=== PATIENT | female | born 1985 | race Caucasian/White ===

== ENCOUNTER 2022-11-02 15:49 | Emergency (ER) | payer BC, SELFPAY ==
--- NOTE | ~2022-11-02 | XR_ITS ---
EXAM: XR finger 2nd RT min 2V DATE: 11/02/2022 16:15 HISTORY: smashed distal finger in a car door . COMPARISON: None available. FINDINGS: Normal mineralization. No fracture or dislocation. No lytic or blastic lesion. Joint space s are maintained. No erosion or periosteal change. Soft tissues within normal limits. IMPRESSION: No acute osseous finding in the right second finger. Reviewed, dictated and finalized at location K. R TECH
--- NOTE | 2022-11-02 16:02 | ED.UPPEXIN ---
HPI - Extremity Injury (Upper) General Chief Complaint: Extremity Injury, Upper Stated Complaint: Pointer Finger Rt Hand Injury Time Seen by Provider: 11/02/22 16:02 Source: patient Mode of arrival: ambulatory Limitations: no limitations History of Present Illness HPI narrative: 37-year-old female presents with complaint of pain to right index finger. Reports that she smashed her finger in her car door. Swelling noted. Range of motion intact. Patient is concerned for fracture. All systems reviewed and negative except as noted above. Related Data Home Medications Medication Instructions Recorded Confirmed No Home Medications 11/02/22 11/02/22 Allergies Allergy/AdvReac Type Severity Reaction Status Date / Time milk Allergy Severe Anaphylaxis Verified 11/02/22 16:06 lactase Allergy Unknown Anaphylaxis Verified 11/02/22 16:06 Penicillins Allergy Unknown Unknown Verified 11/02/22 16:06 Dairy Allergy Severe Anaphylactic Uncoded 11/02/22 16:06 Shock Review of Systems Review of Systems: CONSTITUTIONAL: Denies fever, chills, or sweats. EYES: Denies visual changes, redness, or discharge. ENT: Denies rhinorrhea, congestion, sore throat, or otalgia. CARDIOVASCULAR: Denies chest pain, palpitations, or edema. RESPIRATORY: Denies cough or dyspnea. GASTROINTESTINAL: Denies abdominal pain, nausea, vomiting, or diarrhea. GENITOURINARY: Denies dysuria or hematuria. SKIN: Denies rash or itching. MUSCULOSKELETAL: Reports pain and swelling to right index finger. NEUROLOGIC: Denies headache, numbness, or weakness. PSYCHIATRIC: Denies anxiety or depression. All other systems reviewed are negative, except as documented in HPI. [facility] Family History Family History (Updated 05/20/16 @ 23:19 by DOCTOR UNKNOWN) Father Family history of thyroid disease Family history of kidney stones Colon polyp Family history of sleep apnea Mother Hypertension Family history of allergic disorder Family history of psoriasis Family history of diabetes mellitus in first degree relative Grandparent Family history of glaucoma Hypertension Carcinoma of colon Family history of emphysema Family history of heart disease in male family member before age 55 Diabetes mellitus Other Family history of Alzheimer's disease Family history of cardiovascular disease Family history of lymphoma Family history of malignant neoplasm Social History Social History Smoking status: Never smoker Alcohol intake: current Comments At time of signature, agree with nursing past medical, surgical, social and family history. There is no relevant family history pertinent to the presenting complaint. Exam Narrative: GENERAL: This is a well-nourished, well-developed patient, in no apparent distress. HEAD: normocephalic, atraumatic. EYES: PERRL. Sclera clear/white. Vision is grossly intact. EARS: External ears normal NOSE: External nose normal NECK: Neck supple, non-tender without lymphadenopathy, masses or thyromegaly. CARDIOVASCULAR: Regular rate and rhythm without murmurs, gallops, or rubs. RESPIRATORY: Clear to auscultation. Breath sounds equal bilaterally. No wheezes, rales, or rhonchi. SKIN: warm, Dry, intact with no suspicious lesions or rash, good texture and turgor. Bruising to distal aspect right index finger. Small Subungual hemorrhage to Right index nail. NEURO: awake, alert, and oriented to person, place and time. There were no obvious focal neurologic abnormalities. EXTREMITIES: No joint tenderness, effusion, or edema noted. tenderness to distal aspect right index finger. Course Course Level of Care: Express Care Visit Vital Signs Vital signs: Vital Signs Temperature 36.9 C 11/02/22 16:05 Pulse Rate 78 11/02/22 16:05 Respiratory Rate 18 11/02/22 16:05 Blood Pressure 138/89 11/02/22 16:05 Pulse Oximetry 100 11/02/22 16:05 Oxygen Delivery Room Air 11/02/22 16:05 Temperature 36
[2022-11-02 16:05] VITALS: BP 138/89; PULSE 78; RESP 18; TEMP 36.9; O2SAT 100
[2022-11-02 16:06] VITALS: BP 138/89; PULSE 78; RESP 18; TEMP 36.9; O2SAT 100
== END 2022-11-02 16:37 | disposition home or self-care (01) ==
PROVIDERS: Emergency Provider Nurse Practitioner Family
DX: S60.121A Contusion of right index finger with damage to nail, initial encounter (principal); X58.XXXA Exposure to other specified factors, initial encounter
CPT/HCPCS: 11740; 73140; 99213; G0463

== ENCOUNTER 2023-12-20 08:59 | Emergency (ER) | payer BC, SELFPAY ==
[2023-12-20 10:03] VITALS: BP 126/72; PULSE 88; RESP 16; TEMP 36.2; O2SAT 100
--- NOTE | 2023-12-20 10:38 | ED.FEMALEGU ---
HPI - Female Genitourinary General Chief complaint: Urogenital-Female Stated complaint: Urinary Problems Time Seen by Provider: 12/20/23 10:31 Source: patient and RN notes reviewed Mode of arrival: ambulatory Limitations: no limitations History of Present Illness HPI Narrative: Patient presents today complaining of urinary frequency, lower abdominal pressure, dysuria, urgency since yesterday. She has been taking Tylenol without relief. No recent antibiotic use. States she is unsure she has had any recent vaginal spotting as she does not have typical periods due to IUD. Related Data Home Medications Medication Instructions Recorded Confirmed levonorgestrel 17.5 mcg/24 hrs See Rx Instructions .Route .COMPLEX 12/20/23 12/20/23 (5yrs) 19.5mg intrauterine device (Kyleena) Allergies Allergy/AdvReac Type Severity Reaction Status Date / Time lactase Allergy Severe Anaphylaxis Verified 12/20/23 10:12 milk Allergy Severe Anaphylaxis Verified 12/20/23 10:12 Dairy Allergy Severe Anaphylactic Uncoded 12/20/23 10:12 Shock Review of Systems Review of Systems: CONSTITUTIONAL: Denies body aches, fever, chills, or sweats. EYES: Denies visual changes, redness, or discharge. ENT: Denies rhinorrhea, congestion, sore throat, or otalgia. CARDIOVASCULAR: Denies chest pain, palpitations, or edema. RESPIRATORY: Denies cough or dyspnea. GASTROINTESTINAL: Denies abdominal pain, nausea, vomiting, or diarrhea. GENITOURINARY: + dysuria, urgency, frequency, suprapubic pressure SKIN: Denies rash, itching, or wounds. MUSCULOSKELETAL: Denies back pain, joint pain, or myalgia. NEUROLOGIC: Denies headache, numbness, tingling, or weakness. PSYCH: Denies depression or anxiety. [facility] Family History Family History Father Family history of thyroid disease Family history of kidney stones Colon polyp Family history of sleep apnea Mother Hypertension Family history of allergic disorder Family history of psoriasis Family history of diabetes mellitus in first degree relative Grandparent Family history of glaucoma Hypertension Carcinoma of colon Family history of emphysema Family history of heart disease in male family member before age 55 Diabetes mellitus Other Family history of Alzheimer's disease Family history of cardiovascular disease Family history of lymphoma Family history of malignant neoplasm Social History Social History Smoking status: Never smoker Alcohol intake: current Comments At time of signature, I have reviewed and agree with nursing past medical, surgical, social and family history unless otherwise noted. Please see nursing chart for further information. There is no relevant family history pertinent to the presenting complaint Exam Narrative: GENERAL: Well-appearing, well-nourished, and in no acute distress. HEAD: Normocephalic, atraumatic. EYES: EOMI. No redness or drainage. Conjunctivae normal. ENT: Mucous membranes pink and moist. NECK: Normal AROM. CHEST: No respiratory distress. Clear to auscultation. HEART: Regular rate and rhythm. No murmur appreciated. ABDOMEN: Soft, nondistended, normal active bowel sounds.+ mild suprapubic tenderness EXTREMITIES: Normal range of motion. No edema. SKIN: Warm, dry, no rash. Capillary refill normal. Normal skin turgor. NEURO: No focal deficits. Alert and oriented x3. Gait steady. PSYCH: Normal affect. No signs of depression or anxiety. Course Course Level of Care: Express Care Visit Vital Signs Vital signs: Vital Signs Temperature 97.2 F L 12/20/23 10:03 Pulse Rate 88 12/20/23 10:03 Respiratory Rate 16 12/20/23 10:03 Blood Pressure 126/72 12/20/23 10:03 Pulse Oximetry 100 12/20/23 10:03 Oxygen Delivery Room Air 12/20/23 10:03 Temperature 97.2 F L 12/20/23 10:03 Pulse Rat
== END 2023-12-20 10:45 | disposition home or self-care (01) ==
PROVIDERS: Emergency Provider Nurse Practitioner
DX: N30.01 Acute cystitis with hematuria (principal); B96.20 Unspecified Escherichia coli [E. coli] as the cause of diseases classified elsewhere; Z86.16 Personal history of COVID-19
CPT/HCPCS: 81003; 87077; 87086; 87088; 87186; 99213; G0463

== ENCOUNTER 2024-11-22 17:48 | Emergency (ER) | payer BC, SELFPAY ==
--- OUTSIDE RECORDS SUMMARY | 2024-11-22 17:50 | XMS_ITS | Referral Summary ---
Author Organization [address] Address [address] [place] [address] Care Team Providers Care Inseam Trimmer Name Role Phone Bri Reyez MD PhD Unavailable [phone] Allergies Active Allergy Reactions Criticality Noted Date Comments Milk Anaphylaxis High Reaction: Anaphylaxis, Medications diphenhydrAMINE HCL (Unisom, diphenhydrAMINE,) 50 mg/30 mL liquid 12/06/2021 Active naproxen sodium 220 mg capsule 12/06/2021 Acti ve mv-mn/iron fum/FA/omega3,6,9# 3 (WOMEN'S MULTI ORAL) 12/18/2021 Active acetaminophen (TYLENOL) 500 mg tablet Active ibuprofen (ADVIL,MOTRIN) 200 mg tab/cap Active Hospital, Clinic, or Other Facility Administered Medication Ordered Dose Route Frequency Start Date End Date Status levonorgestreL (KYLEENA) 17.5 mcg/24 hrs (5 yrs) 19.5 mg IUD 1 eachIndications:En counter for IUD insertion 1 each intrauterine Continuous (implanted device) 10/29/2020 Active Active Problems Problem Noted Date Diagnosed Date SAGE (obstructive sleep apnea) 01/08/2023 Family history of esophageal cancer 03/04/2022 Family history of uterine cancer 03/04/2022 Preventative health care 12/21/2021 Assessment & Plan (12/26/2022 2:07 PM JEWEL HOLE DRILLER): -labs today -advise q 6 month dental exam -advise annual derm check -advise annual eye exam -advise regular exercise 3-5 times a week for 30 minutes -no family hx of early breast or colon cancer -advise covid vaccine and booster -advise obgyn -advise flu shot Assessment & Plan (12/21/2021 2:57 PM JEWEL HOLE DRILLER): -labs today -up-to-date with Tdap, flu, COVID vaccine booster -advised regular exercise three to 5 times a week for at least 30 minutes advised q.6 months dental checks -advise annual eye exams -referral to genetic counseling -goes OBGYN regularly Low vitamin D level 12/21/2021 Arthralgia 12/21/2021 Assessment & Plan (12/21/2021 2:56 PM JEWEL HOLE DRILLER): -presents is 2018, symmetrical, in bilateral knees, hips, shoulders. Feelings of burning/pain -will get full rheumatologic workup as below -consider to referral rheumatology based Family hx of colon cancer 12/21/2021 Assessment & Plan (12/21/2021 2:57 PM JEWEL HOLE DRILLER): Family history of esophageal cancer, colon cancers, uterine cancer -no family history of breast or colon cancer early age that she is aware of however not completely sure -would like referral to genetic screening/Dr. Reyez clinic for further evaluation/treatment. Resolved Problems Problem Noted Date Diagnosed Date Resolved Date care following vaginal delivery 09/16/2020 10/29/2020 Overview (09/17/2020): # ID: Afebrile. No signs/symptoms of infection. COVID-19 negative # Heme: EBL 300 mL. Hemodynamically stable. # CV/Pulm: Vital signs stable, within normal limits. # GI/: Tolerating PO. Voiding spontaneously. # Pain: Controlled with above regimen. # Post DVT prophylaxis: The patient has the following MAJOR risk factors none and the following MINOR risk factors BMI 30-39 and none. SCDs ordered for VTE prophylaxis. # MOC: Desires IUD at visit, declines bridge # MOF: Both formula and # Disposition: Desires discharge home today pending ok from pediatrics (pt has been having trouble scheduling apt) Encounter for elective induction of labor 09/15/2020 09/16/2020 Overview (09/16/2020): 1. Elective Induction of Labor: OT @14, continue per protocol. SROM@0300. Patient does not want to be checked at this time. Will plan for check in 1 hour. 2. h/o demise: TIUP in G1 , s/p demise of 1 twin from e coli sepsis on DOL#3 3. h/o preE: on ASA during this , BPs wnl this 4. FWB: Continuous monitoring. tracing category I 5. ID: HIV negative. GBS negative. Membrane Status: SROM@0300 6. Indications for UDS: none. Verbal consent obtained for UDS: Not indicated 7. MOF: Plans to both breast and formula feed. 8. MOC: Plans to use paragard IUD for contraception at 6 week PP visit. Declines bridge. 9. Pain management: s/p epidural 10. Post DVT prophylaxis: The patient has the following MAJOR risk factors none and the following MINOR risk factors BMI 30-39 and parity >/=3. enoxaparin 40 mg daily will be ordered for VTE prophylaxis . 11. COVID Test Status: Test sent on admission in prior preg estela, currently in third trimester 07/10/2020 10/29/2020 Overview (07/10/2020): TIUP, daughter of E. Coli sepsis on DOL #3 Patient in therapy Requests the no mention of this during admission for delivery. Excessive growth affec ting management of in second trimester 04/29/2020 021 Overview (07/08/2020): EFW 93% on anatomy sono ( x ) 3rd trimester growth sono- 84% at 30w0d Proteinuria 04/29/2020 09/08/2020 Overview (06/24/2020): F/u urine culture 04/29/2020 ( x ) 24h urine protein: 192 ( x ) CMP wnl Encounter for supervision of normal in first trimester 03/02/2020 10/29/2020 Overview (04/29/2020): IOB Labs: Lab Results Component Value Date ABORH A Positive 02/20/2020 IDCOOMB Negative 02/20/2020 [id number] Nonreactive 02/20/2020 LABRPR Nonreactive 02/20/2020 RUBELIGG Reactive 02/20/2020 HEPBSAG Nonreactive 02/20/2020 Optional: [x] Aneuploidy screening: FLK wnl [x] Carrier testing: Otogenetics neg 2nd Tri Labs: [x] Anatomy ultrasound: [] CBC/1hr gtt/HIV/RPR at 24-28wks: Lab Results Component Value Date [id number] Nonreactive 02/20/2020 LABRPR Nonreactive 02/20/2020 ( [] Flu Shot (Jun-December) [] Tdap (27-36wks) 3rd Tri Labs: [] GBS No results found for: GBS Immunizations Name Administration Dates Next Due Influenza, Quadrivalent, Nilam l Culture-based MDCK, Preservative Free, Antibiotic Free, Intramuscular 10/04/2021 Influenza, Quadrivalent, Spl it, Preservative Free, Intramuscular 07/10/2020,07/24/2018 Tdap 06/24/2020,06/11/2018 Social History Tobacco Use Types Packs/Day Years Used Date Smoking Tobacco: Never Smokeless Tobacco: Never Tobacco Cessation:Counseling Given: Not Answered Alcohol Use Standard Drinks/Week Comments Not Currently 0 (1 standard drink = 0.6 oz pur e alcohol) AUDIT-C Answer Date Recorded Q1: How often do you have a drink containing alc ohol? Monthly or less 12/03/2021 Q2: How many drinks containi ng alcohol do you have on a typical day when you are drinking? 1 or 2 12/03/2021 Q3: How often do you have si x or more drinks on one occasion? Less than monthly 12/03/2021 PHQ-2 Answer Date Recorded PHQ-2 Total Score (If total score is 3 or more points, staff should administer the PHQ-9) 0 12/26/2022 Notus Depression Scale Answer Date Recorded Notus Depression Scale Total 7 10/28/2020 The thought of harming myself has occurred to me . Never 10/28/2020 Personal Safety Answer Date Recorded Getting School Help Needed Not on file 10/14 Comments No Sex and Gender Information Value Date Recorded Sex Assigned at Not on file Legal Sex Female 1:35 AM JEWEL HOLE DRILLER Gender Identity Female 03/29/2020 6:46 PM CDT Sexual Orientation Not on file Last Filed Vital Signs Vital Sign Reading Time Taken Comments Blood Pressure 131/82 12/26/2022 1:30 PM JEWEL HOLE DRILLER Pulse 90 12/26/2022 1:30 PM JEWEL HOLE DRILLER Temperature 36.6 ??C (97.8 ??F) 12/26/2022 1:30 PM CS T Respiratory Rate 16 03/03/2022 9:17 AM CDT Oxygen Saturation 98% 03/03/2022 9:17 AM CDT Inhaled Oxygen Concentration - - Weight 91.8 kg (202 lb 6.4 oz) 03/03/2022 9:17 A M CDT Height 162.6 cm (5' 4 ) 12/21/2021 2:13 PM JEWEL HOLE DRILLER Body Mass Index 34.74 12/21/2021 2:13 PM JEWEL HOLE DRILLER Plan of Treatment Not on file Procedures Procedure Name Priority Date/Time Associated Diagnosis Comments HEPATITIS C ANTIBODY Routine 12/21/2021 3:02 PM JEWEL HOLE DRILLER Preventative health care Arthralgia, unspecified joint from Last 3 Months or Most Recently Relevant to Health Maintenance Results * Hepatitis C antibody (12/21/2021 3:02 PM JEWEL HOLE DRILLER) Hep C Ab Nonreactive Nonreactive [facility] Comment:Antibodies to HCV no t detected. Does NOT exclude the possibility of recent exposure to HCV. Blood 12/21/2021 3:0 2 PM JEWEL HOLE DRILLER 12/21/2021 5:07 PM JEWEL HOLE DRILLER us Emma Raines MD LAB MICROBIOLOGY - GENERA L ORDERABLES Edited Result - Final [facility] Department [place] [address] from Last 3 Months or Most Recently Relevant to Health Maintenance Insurance [employer] ACCESS OOS [employer] OOS ANTHEM ACCESS CHOICE BLUE ACCESS OOS Advance Directives For more information, please contact: [phone] * Full Code (Latest Code Status on File) Date Activated Date Inactivated Comments 09/16/2020 3:01 PM 09/17/2020 9:04 PM * Full Code Date Activated Date Inactivated Comments 09/15/2020 10:17 PM 09/16/2020 3:01 PM Full CPR in case of cardiopulmonary arrest Care Teams Inseam Trimmer Relationship Specialty Start Date End Date Bri Reyez MD PhD Consulting Physician Medical Oncology 01/07/22
--- OUTSIDE RECORDS SUMMARY | 2024-11-22 17:50 | XMS_ITS | Clinical Summary ---
Author Organization [address] Address [address] [place] [address] Care Team Providers Care Tape Keller Operator Name Role Phone Bri Reyez MD PhD Unavailable [phone] Allergies Active Allergy Reactions Criticality Noted Date [...] 12/21/2021 Assessment & Plan (12/26/2022 2:07 PM STATIC BALANCER): -labs today -advise q 6 month dental exam -advise annual derm check -advise annual eye exam -advise regular exercise 3-5 times a week for 30 minutes -no family hx of early breast or colon cancer -advise covid vaccine and booster -advise obgyn -advise flu shot Assessment & Plan (12/21/2021 2:57 PM STATIC BALANCER): -labs today -up-to-date with Tdap, flu, COVID vaccine booster -advised regular exercise three to 5 times a week for at least 30 minutes advised q.6 months dental checks -advise annual eye exams -referral to genetic counseling -goes OBGYN regularly Low vitamin D level 12/21/2021 Arthralgia 12/21/2021 Assessment & Plan (12/21/2021 2:56 PM STATIC BALANCER): -presents is 2018, symmetrical, in bilateral knees, hips, shoulders. Feelings of burning/pain -will get full rheumatologic workup as below -consider to referral rheumatology based Family hx of colon cancer 12/21/2021 Assessment & Plan (12/21/2021 2:57 PM STATIC BALANCER): Family history of esophageal cancer, colon cancers, [...] ABORH A Positive 02/20/2020 IDCOOMB Negative 02/20/2020 [id number] Nonreactive 02/20/2020 LABRPR Nonreactive 02/20/2020 RUBELIGG Reactive 02/20/2020 HEPBSAG Nonreactive 02/20/2020 Optional: [x] Aneuploidy screening: FLK wnl [x] Carrier testing: Otogenetics neg 2nd Tri Labs: [x] Anatomy ultrasound: [] CBC/1hr gtt/HIV/RPR at 24-28wks: Lab Results Component Value Date [id number] Nonreactive 02/20/2020 LABRPR Nonreactive 02/20/2020 ( [] Flu Shot (Jun-December) [] Tdap (27-36wks) 3rd Tri Labs: [] GBS No results found for: GBS Immunizations Name Administration Dates Next Due Influenza, Quadrivalent, Nilam l Culture-based MDCK, Preservative Free, Antibiotic Free, Intramuscular 10/04/2021 Influenza, Quadrivalent, Spl it, Preservative Free, Intramuscular 07/10/2020,07/24/2018 Tdap 06/24/2020,06/11/2018 Surgical History Surgery Date Site/Laterality Comments LAPAROSCOPIC CHOLECYSTECTOMY 10/23/2015 - 10/22/2016 [facility] Medical History Medical History Date Comments Depression Family History Medical History Relation Name Comments [place] , infection Daughter Esophageal cancer Father nonsmoker Heart attack Maternal Grandfather Skin cancer Maternal Grandmother Hypertension Mother Psoriasis Mother Emphysema Paternal Grandfather history of smoking No Known Problems Paternal Grandmother Uterine cancer Paternal cousin No Known Problems Son 1 Margarito No Known Problems Son 2 Bethel Relation Name Status Comments Daughter Father (Age 60) Maternal Grandfather (Age 53) Maternal Grandmother Alive Mother Alive Paternal Grandfather Paternal Grandmother (Age 94) Paternal cousin (Age 50) Son 1 Margarito Alive Son 2 Adrian Alive Social History Tobacco Use Types Packs/Day Years [...] staff should administer the PHQ-9) 0 12/26/2022 Dawson Depression Scale Answer Date Recorded Dawson Depression Scale Total 7 10/28/2020 The thought of harming myself has occurred to me . Never 10/28/2020 Personal Safety Answer Date Recorded Getting School Help Needed Not on file 10/14 Comments No Sex and Gender Information Value Date Recorded Sex Assigned at Not on file Legal Sex Female 1:35 AM STATIC BALANCER Gender Identity Female 03/29/2020 6:46 PM CDT Sexual Orientation Not on file Obstetrics History Para Term AB IAB SAB Ectopic Multiple Livin g Live Births 2 2 2 1 2 3 Date Outcome GA Total Labor Labor/2nd/3rd Weight Sex Type Anes PTL Carol A1 A5 Name Clin Term 37w 0d M Vag-S pont Livin g Term 37w 0d F Vag-S pont Neona juarez Demis e Living Status Comments: 3d after of E. coli sepsis 2019 Term 40w 1d 0h 09m 0h 07m/0h 02m 3.89 kg (8 lb 9.2 oz) M Vag-S pont Epidur al N Livin g 8 9 PAUL NICHOLE ATHLE EN Chinmay Hicks MD Complications:None Delivery Location:[facility] Main C ampus ([facility] [id number]) Comments Twin , preE, daught er 3d later of E. Coli sepsis Last Filed Vital Signs Vital Sign Reading Time Taken Comments Blood Pressure 131/82 12/26/2022 1:30 PM STATIC BALANCER Pulse 90 12/26/2022 1:30 PM STATIC BALANCER Temperature 36.6 ??C (97.8 ??F) 12/26/2022 1:30 PM CS T Respiratory Rate 16 03/03/2022 9:17 AM CDT Oxygen Saturation 98% 03/03/2022 9:17 AM CDT Inhaled Oxygen Concentration - - Weight 91.8 kg (202 lb 6.4 oz) 03/03/2022 9:17 A M CDT Height 162.6 cm (5' 4 ) 12/21/2021 2:13 PM STATIC BALANCER Body Mass Index 34.74 12/21/2021 2:13 PM STATIC BALANCER Plan of Treatment Health Maintenance Due Date Last Done Comments Cervical Cancer Screening 1987 Hepatitis B Screening 2005 Depression Screening 12/27/2023 12/26/2022, 12/21/2021, 10/28/2020, Additional history exists Regular Well Visit/Exam 18-64 12/27/2023 12/26/2022, 12/21/2021, 12/03/2021 Covid-19 Vaccine ( season) 2024 10/04/2021, 01/16/2021, 12/24/2020 Influenza Vaccine (#1) 2024 , 07/10/2020, 07/24/2018 DTaP/Tdap/Td Vaccine (3 - Td or Tdap) 06/24/2030 06/24/2020, 06/11/2018 Hepatitis C Screening Completed 12/21/2021 HPV Vaccines Aged Out No longer eligi ble based on patient's age to complete this topic Pneumococcal vaccine <65 Aged Out No longer eligible based on patient's age to complete this topic Varicella Vaccines Discontinued Procedures Procedure Name Priority Date/Time Associated Diagnosis Comments HEPATITIS C ANTIBODY Routine 12/21/2021 3:02 PM STATIC BALANCER Preventative health care Arthralgia, unspecified joint from Last 3 Months or Most Recently Relevant to Health Maintenance Results * Hepatitis C antibody (12/21/2021 3:02 PM STATIC BALANCER) Hep C Ab Nonreactive Nonreactive [facility] Comment:Antibodies to HCV no t detected. Does NOT exclude the possibility of recent exposure to HCV. Blood 12/21/2021 3:02 PM STATIC BALANCER 12/21/2021 5:07 PM STATIC BALANCER Emma Raines MD LAB MICROBIOLOGY - GENERA L ORDERABLES Edited Result - Final [facility] Department [place] [address] from Last 3 Months or Most Recently Relevant to Health Maintenance Insurance [employer] OOS [employer] O[employer] ACCESS CHOICE Transcript[employer] OOS Advance Directives For more information, please contact: [phone] * Full Code (Latest Code Status on File) Date Activated Date Inactivated Comments 09/16/2020 3:01 PM 09/17/2020 9:04 PM * Full Code Date Activated Date Inactivated Comments 09/15/2020 10:17 PM 09/16/2020 3:01 PM Full CPR in case of cardiopulmonary arrest Care Teams Tape Keller Operator Relationship Specialty Start Date End Date Bri Reyez MD PhD Consulting Physician Medical Oncology 01/07/22
--- OUTSIDE RECORDS SUMMARY | 2024-11-22 17:50 | XMS_ITS | Clinical Summary ---
Author Organization [facility] Address [address] [place] [address] Phone Care Team Providers Care Manager Food Safety Name Role Phone Unavailable Primary Care Provider Unavailabl e Allergies Active Allergy Reactions Criticality Noted Date Comments Milk Anaphylaxis High 03/14/2018 Medications Breast Pump DeviceIndicatio ns:Dichorionic diamniotic twin in third trimester,Super vision of high risk , antepartum Double electric breast pump. Use as directed. 1 Device 08/14/2018 Active Breast Pump Device Double electric breast pump. 1 Device 08/21/2018 Active Active Problems Problem Noted Date Diagnosed Date s/p / di-di spontaneous twins 08/21/2018 Unexpected sudden of infant 08/21/2018 Resolved Problems Problem Noted Date Diagnosed Date Resolved Date Acute blood loss anemia 08/21/2018 12/0 02/2018 Preeclampsia 08/21/2018 09/26/2018 Elevated blood pressure affe cting in third trimester, antepartum 08/14/2018 8 Supervision of high risk pre gnancy, antepartum 03/17/2018 09/26/2018 Dichorionic diamniotic twin in third trimester 03/17/2018 09/26/2018 Immunizations Immunization Administration Dates Next Due (ADACEL/BOOSTRIX)(10 YR UP) TDAP VACCINE, 0.5ML, IM 06/11/2018 INFLUENZA VACCINE QUADRIVALENT 6 MOS UP PF IM Family History Medical History Relation Name Comments Cancer Father Hypertension Mother Relation Name Status Comments Father esophageal Mother Alive Social History Tobacco Use Types Packs/Day Years Used Date Smoking Tobacco: Never Smokeless Tobacco: Never Alcohol Use Standard Drinks/Week Comments No 0 (1 standard drink = 0.6 oz pur e alcohol) Comments No Sex and Gender Information Value Date Recorded Sex Assigned at Not on file Legal Sex Female 3:44 PM CDT Gender Identity Not on file Sexual Orientation Not on file Last Filed Vital Signs Vital Sign Reading Time Taken Comments Blood Pressure 122/81 09/25/2018 11:47 AM PAPER GLUING OPERATOR Pulse 90 08/21/2018 7:00 AM CDT Temperature 36.9 ??C (98.5 ??F) 08/21/2018 7:00 AM CD T Respiratory Rate 18 08/21/2018 7:00 AM CDT Oxygen Saturation 100% 08/17/2018 6:58 AM CDT Inhaled Oxygen Concentration - - Weight 85.7 kg (189 lb) 09/25/2018 11:47 AM PAPER GLUING OPERATOR Height 162.6 cm (5' 4 ) 09/25/2018 11:47 AM PAPER GLUING OPERATOR Body Mass Index 32.44 09/25/2018 11:47 AM PAPER GLUING OPERATOR Plan of Treatment Health Maintenance Due Date Last Done Comments HEPATITIS B VACCINES (1 of 3 - 19+ 3-dose series) 2006 CERVICAL CANCER SCREENING 09/25/2021 09/25/2018 INFLUENZA VACCINE (#1) 2024 07/24/2018 DTAP/TDAP/TD VACCINES (2 - T d or Tdap) 06/11/2028 06/11/2018 HPV VACCINES Aged Out No longer eligi ble based on patient's age to complete this topic PNEUMOCOCCAL VACCINE 0-64 YEARS Aged Out No longer eligible based on patient's age to complete this topic Procedures Procedure Name Priority Date/Time Associated Diagnosis Comments CERV/VAG CYTO AGE BASED SCREEN PAP Routine 09/25/2018 12:32 PM PAPER GLUING OPERATOR Cervical smear, as part of routine gynecological examination from Last 3 Months or Most Recently Relevant to Health Maintenance Results * CERV/VAG CYTO AGE BASED SCREEN PAP (09/25/2018 12:32 PM PAPER GLUING OPERATOR) COMMENT (PAP): SEE COMMENT 8 8:23 AM PAPER GLUING OPERATOR [facility] Comment: This order for age-based cervical cancer and STI screening follows ACOG guidelines(PB 168, 140, RUK867). See individual assays for performing site location. CLINICAL INFORMATION 10/01/2018 8:23 AM PAPER GLUING OPERATOR [facility] LAST MENSTRUAL PERIOD Information not provided 10/01/2018 8:23 AM PAPER GLUING OPERATOR [facility] PREV PAP: Information not provided 10/01/2018 8:23 AM PAPER GLUING OPERATOR [facility] PREV BX: Information not provided 10/01/2018 8:23 AM PAPER GLUING OPERATOR [facility] SOURCE Endocervix 10/01/2018 8:23 AM PAPER GLUING OPERATOR [facility] ADEQUACY: SEE COMMENT 10/01/2018 8:23 AM PAPER GLUING OPERATOR [facility] Comment: Satisfactory for evaluation. Endocervical/transformation zone component present. PAP INTERP Negative for intraepithelial lesion or malignancy. 10/01/2018 8:23 AM PAPER GLUING OPERATOR [facility] COMMENT This Pap test has been evaluated with computer assisted technology. 10/01/2018 8:23 AM PAPER GLUING OPERATOR [facility] SHIRT MARKER: SEE COMMENT 2017 8:23 AM PAPER GLUING OPERATOR [facility] Comment: AMW, CT(ASCP) CT screening location: [place] [address] [place] [address] EXPLANATORY NOTE SEE COMMENT 018 8:23 AM PAPER GLUING OPERATOR [facility] Comment: EXPLANATORY NOTE: The Pap is a screening test for cervical cancer. It is not a diagnostic test and is subject to false negative and false positive results. It is most reliable when a satisfactory sample, regularly obtained, is submitted with relevant clinical findings and history, and when the Pap result is evaluated along with historic and current clinical information. HPV E6/E7 Not Detected Not Detected 10/01/2018 8:23 AM PAPER GLUING OPERATOR [facility] Comment: This test was performed using the APTIMA HPV Assay ([employer] This assay detects E6/E7 viral messenger RNA (mRNA) from 14 high-risk HPV types (16,18,31,33,35,39,45,51,52,56,58,59,66,68). The analytical performance characteristics of this assay have been determined by [employer]. The modifications have not been cleared or approved by the FDA. This assay has been validated pursuant to the CLIA regulations and is used for clinical purposes. Genital SWAB OF ENDOCERVIX / Unknown Collection / Unknown 09/25/2018 12:32 PM PAPER GLUING OPERATOR 09/25/2018 2:51 PM PAPER GLUING OPERATOR Narrative [facility] - 10/01/2018 8:23 AM PAPER GLUING OPERATOR Performing Organization Information: ?Site ID: [id number] ?Name: [facility] ?Address: [address] [address] ?Director: Oscar Still D.O., MPH ?Site ID: [id number] ?[facility] ?Address: [address], [place] [address] ?Director: Shaan Samuels january Wilfrido [facility] ORDERABLES Final Result [facility] from Last 3 Months or Most Recently Relevant to Health Maintenance Insurance [employer] PPO [id number] Advance Directives For more information, please contact: [phone] * Full Code (Latest Code Status on File) Date Activated Date Inactivated Comments 08/17/2018 4:40 AM 08/21/2018 2:16 PM * Full Code Date Activated Date Inactivated Comments 08/14/2018 7:42 PM 08/17/2018 4:40 AM * Full Code Date Activated Date Inactivated Comments 08/14/2018 2:48 PM 08/14/2018 7:42 PM
--- OUTSIDE RECORDS SUMMARY | 2024-11-22 17:50 | XMS_ITS | Clinical Summary ---
Author Organization [facility] Care Team Providers Care Power System Electrical Engineer Name Role Phone Unavailable Primary Care Provider Unavailabl e Social History Tobacco Use Types Packs/Day Years Used Date Smoking Tobacco: Never Assessed Comments Unknown Sex and Gender Information Value Date Recorded Sex Assigned at Not on file Legal Sex Female 3:55 PM CDT Gender Identity Not on file Sexual Orientation Not on file Plan of Treatment Health Maintenance Due Date Last Done Comments Hepatitis C Virus (HCV) Screening 1987 TdaP Immunization 1987 Hepatitis B Immunization (1 of 3 - 19+ 3-dose series) 2006 Pap Smear 2008 Cervical Cancer Screening (CCS) 2017 HPV/Cotest 2017 Influenza Immunization (#1) 2024 SARS-COV-2 Immunization ( season) 2024 01/16/2021, 12/24/2020 Respiratory Syncytial Virus (RSV) Immunization (Adult) (1 - 1-dose 75+ series) 2062 Meningococcal Immunization (ACWY) Aged Out No longer eligible b ased on patient's age to complete this topic Pneumococcal Immunization Combined Aged Out No longer eligible b ased on patient's age to complete this topic Rotavirus Immunization Aged Out No lo nger eligible based on patient's age to complete this topic
--- OUTSIDE RECORDS SUMMARY | 2024-11-22 17:50 | XMS_ITS | Clinical Summary ---
Author Organization [facility] Address [address] [place] [address]. [place], [place] [id number] [place] [address] Care Team Providers Care Director Of Content Marketing Name Role Phone Unavailable Primary Care Provider Unavailabl e Social History Tobacco Use Types Packs/Day Years Used Date Smoking Tobacco: Never Assessed Comments Unknown Sex and Gender Information Value Date Recorded Sex Assigned at Not on file Legal Sex Female 10:22 PM USABILITY STRATEGIST Gender Identity Not on file Sexual Orientation Not on file Plan of Treatment Health Maintenance Due Date Last Done Comments Cervical Cancer Screening Pa p Smear (Age 30 to 64) Every 3 Years 1987 Annual Physical 1990 Hepatitis C 2005 DTaP, Tdap and Td Vaccines ( 1 - Tdap) 2006 Hepatitis B Vaccines (1 of 3 - 19+ 3-dose series) 2006 Cervical Cancer Screening Pa p with HPV Testing (Age 30 to 64) Every 5 Years 2017 Cervical Cancer Screening with HPV 2017 COVID-19 Vaccine (2023-2 5 season) 2024 Influenza Adult (#1) 2024 HPV Vaccines Aged Out No longer eligi ble based on patient's age to complete this topic Meningococcal B Vaccine Aged Out No l onger eligible based on patient's age to complete this topic Meningococcal Vaccine Aged Out No nadeem asaf eligible based on patient's age to complete this topic Pneumococcal Vaccine: Pediat rics (0 to 5 Years) and At-Risk Patients (6 to 64 Years) Aged Out No longer eligible b ased on patient's age to complete this topic RSV Immunizations Under 20 Months Aged Out No longer eligible based on patient's age to complete this topic
[2024-11-22 18:01] VITALS: BP 130/81; PULSE 87; RESP 18; TEMP 36.6; O2SAT 100
--- NOTE | 2024-11-22 18:42 | ED.URI ---
HPI - URI/Sore Throat General Chief Complaint: Upper Respiratory Infection Stated Complaint: cough Time Seen by Provider: 11/22/24 18:43 Source: patient, RN notes reviewed and old records reviewed Mode of arrival: ambulatory Limitations: no limitations History of Present Illness HPI Narrative: 39-year-old female presents to the [facility] with concerns of a cough that has been going on for over 1 month. Patient denies feeling sickly. Denies chest pain or shortness of breath. States that she just has coughing fits Related Data Home Medications ?Medication ?Instructions ?Recorded ?Confirmed ?Last Taken ?Type levonorgestrel 17.5 mcg/24 hr (up See Rx Instructions .Route .COMPLEX 12/20/23 12/20/23 Unknown History to 5 yrs) 19.5mg intrauterine device (Kyleena) Allergies Allergy/AdvReac Type Severity Reaction Status Date / Time lactase Allergy Severe Anaphylaxis Verified 12/20/23 10:12 milk Allergy Severe Anaphylaxis Verified 11/22/24 19:10 Review of Systems Review of Systems: All systems reviewed & are unremarkable except as noted in HPI and below Constitutional: Constitutional: Reports no additional constitutional complaints ENT: Reports system reviewed and no additional complaints, except as documented Cardiovascular: Cardiovascular: Reports no additional cardiovascular complaints, Denies chest pain and Denies dyspnea Respiratory: Respiratory: Reports as per HPI, Denies chest congestion, Reports cough and Denies dyspnea Musculoskeletal: Musculoskeletal: Reports no additional musculoskeletal complaints Integumentary/Breasts: Skin/Breast: Reports system reviewed and no additional complaints, except as docu PMFSH Family History Family History Father Family history of thyroid disease Family history of kidney stones Colon polyp Family history of sleep apnea Mother Hypertension Family history of allergic disorder Family history of psoriasis Family history of diabetes mellitus in first degree relative Grandparent Family history of glaucoma Hypertension Carcinoma of colon Family history of emphysema Family history of heart disease in male family member before age 55 Diabetes mellitus Other Family history of Alzheimer's disease Family history of cardiovascular disease Family history of lymphoma Family history of malignant neoplasm Social History Social History Smoking status: Never smoker Alcohol intake: current Comments At the time of my signature, I reviewed and agree with the nursing past medical, surgical, social, and family history. There is no relevant family history pertinent to the patient complaint. Exam Const: General: cooperative, healthy appearing, comfortable, no acute distress, well developed, alert and well nourished Nutritional Appearance: well nourished Orientation/consciousness: patient oriented x3 Limitations: no limitations HENMT: Head: normal to inspection Ears: hearing grossly normal bilaterally, external ears normal, TM's normal bilaterally, EAC's normal, mastoids normal and no periauricular adenopathy Mouth: Yes Normal oral and palatal mucosa present, Yes lip normal, Yes tongue normal and Yes moist mucous membranes Throat: posterior oropharynx normal, uvula midline and no uvular edema Eyes: General: appearance normal, both eyes and all related structures Alignment and Position: alignment normal Neck: Neck: normal visual inspection, full ROM, no lymphadenopathy and no meningeal signs Chest: Chest palpation & inspection: normal inspection of the chest Resp: Effort & Inspection: normal respiratory effort and able to speak in complete sentences Auscultation: clear to auscultation bilaterally, no crackles, no rales, no rhonchi and no wheezes Cardio: Rate: regular rate Skin: General skin exam: normal color and no rashes or lesions noted Neuro: General: patient oriented x3, gait normal, moves all extremities and no meningeal signs Cognition (Neuro): normal cognition Speech: normal speech Gait exam (Neuro): Normal gait present Extrem: General: normal to inspection, full ROM, capillary refill normal and normal gait Psych: Appearance: grossly normal and well kempt Mental Status: mental status grossly normal Speech and movement: Normal speech and movement present and Clear speech present Affect: normal affect Attitude: cooperative Course Course Level of Care: Express Care Visit Vital Signs Vital signs: Vital Signs Temperature 97.8 F 11/22/24 18:01 Pulse Rate 87 11/22/24 18:01 Respiratory Rate 18 11/22/24 18:01 Blood Pressure 130/81 11/22/24 18:01 Pulse Oximetry 100 11/22/24 18:01 Oxygen Delivery Room Air 11/22/24 18:01 Temperature 97.8 F 11/22/24 18:01 Pulse Rate 87 11/22/24 18:01 Respiratory Rate 18 11/22/24 18:01 Blood Pressure 130/81 11/22/24 18:01 Pulse Oximetry 100 11/22/24 18:01 Oxygen Delivery Room Air 11/22/24 18:01 Reviewed MDM - URI/Sore Throat MDM Narrative Medical decision making narrative: Patient sitting comfortably in exam room. Nontoxic, vitals stable. Patient in no acute distress patient presents with over 1 month history of a cough, Will attempt to treat and with antibiotics, steroids, discussed with patient this could be viral and they may not work or they may work for short period time and it may return. Patient appropriate for outpatient treatment and follow-up Discharge instructions reviewed with patient, as well as provided in writing per nursing staff. The instructions also include specific and strict return/GO TO THE ER as well as f/u information. All questions have been answered, and the patient deny any further questions with discharge and discharge plan. Some parts of this dictation were generated by voice recognition software and may contain typographical and/or grammatical inaccuracies. Differential Diagnosis Differential diagnosis: Likely upper respiratory infection, otitis media, sinusitis, viral infection, bronchitis, influenza and pharyngitis Critical Care Time Critical Care Time Critical Care Time: No Discharge Plan Discharge Clinical Impression: Bronchitis Patient Disposition: Home, Self-Care Condition: Stable Instructions: Antibiotic Form, Acute Bronchitis (ED) Additional Instructions: It is very important to treat your symptoms. Drink plenty of water, Gatorade, Pedialyte, ice pops or Jell-O. -Alternate Tylenol and Motrin per package directions for fever or pain. You can alternate every 4 hours -Antihistamine medication such as Zyrtec/Claritin/Imani during the day can help improve symptoms. -doing daily nasal irrigations can help relieve pressure your sinuses. Things like a Neti pot -Use Flonase twice a day for 5 days then daily to help reduce the inflammation and dry up your sinuses. -You can also use Mucinex. Be sure to drink plenty of water with this medication at least 8 ounces with every dose and it is important to drink 8 to 10 glasses of water per day. Water is a natural decongestant -Eat and drink things that are easy to swallow, like tea or soup, or popsicles. -Oral rinses such as: Salt water gargles and/or may use topical anesthetic (eg. Chloraseptic spray) or lozenges to relieve dryness or throat pain). -Frequent hand washing or hand electronics design engineer is one of the best ways to prevent spread of infection. -Using a vaporizer or humidifier at night will also help thin secretions and help with coughing up phlegm. -Follow up with primary care provider in 7-10 days if condition is not improving - For new or worsening symptoms go directly to the nearest ER Patient Language: Estonian Prescriptions: New doxycycline monohydrate 100 mg tablet 100 mg PO BID Qty: 14 0RF prednisone 20 mg tablet See Rx Instructions .Route .COMPLEX Qty: 9 0RF Rx Instructions: Take 40 mg daily for 3 days, 20 mg daily for 3 days No Action Kyleena 17.5 mcg/24 hrs (5 yrs) 19.5 mg Intrauterine Device See Rx Instructions .ROUTE .COMPLEX Rx Instructions: 17.5 mcg intrauterinely Follow-up/Referrals: PHYSICIAN,CONCRETE RUBBER [Primary Care Provider] - Stand Alone Forms: Work/School Release IP Time of Disposition: 18:52
== END 2024-11-22 19:00 | disposition home or self-care (01) ==
PROVIDERS: Emergency Provider Nurse Practitioner
DX: J40 Bronchitis, not specified as acute or chronic (principal)
CPT/HCPCS: 99213; G0463

== ENCOUNTER 2025-09-13 13:05 | Emergency (ER) | payer BC, SELFPAY ==
--- OUTSIDE RECORDS SUMMARY | 2025-09-13 13:08 | XMS_ITS | Clinical Summary ---
Author Organization [address] Address [address] [place] [address] Care Team Providers Care Laundry Operator Name Role Phone Bri Reyez MD PhD Unavailable [phone] Allergies Active Allergy Reactions Criticality Noted Date [...] 12/21/2021 Assessment & Plan (12/26/2022 2:07 PM MANAGER DELI): -labs today -advise q 6 month dental exam -advise annual derm check -advise annual eye exam -advise regular exercise 3-5 times a week for 30 minutes -no family hx of early breast or colon cancer -advise covid vaccine and booster -advise obgyn -advise flu shot Assessment & Plan (12/21/2021 2:57 PM MANAGER DELI): -labs today -up-to-date with Tdap, flu, COVID vaccine booster -advised regular exercise three to 5 times a week for at least 30 minutes advised q.6 months dental checks -advise annual eye exams -referral to genetic counseling -goes OBGYN regularly Low vitamin D level 12/21/2021 Arthralgia 12/21/2021 Assessment & Plan (12/21/2021 2:56 PM MANAGER DELI): -presents is 2018, symmetrical, in bilateral knees, hips, shoulders. Feelings of burning/pain -will get full rheumatologic workup as below -consider to referral rheumatology based Family hx of colon cancer 12/21/2021 Assessment & Plan (12/21/2021 2:57 PM MANAGER DELI): Family history of esophageal cancer, colon cancers, [...] ABORH A Positive 02/20/2020 IDCOOMB Negative 02/20/2020 [id number] Nonreactive 02/20/2020 LABRPR Nonreactive 02/20/2020 RUBELIGG Reactive 02/20/2020 HEPBSAG Nonreactive 02/20/2020 Optional: [x] Aneuploidy screening: FLK wnl [x] Carrier testing: Otogenetics neg 2nd Tri Labs: [x] Anatomy ultrasound: [] CBC/1hr gtt/HIV/RPR at 24-28wks: Lab Results Component Value Date [id number] Nonreactive 02/20/2020 LABRPR Nonreactive 02/20/2020 ( [] Flu Shot (Jun-December) [] Tdap (27-36wks) 3rd Tri Labs: [] GBS No results found for: GBS Immunizations Immunization Administration Dates Next Due Influenza, Quadrivalent, Nilam l Culture-based MDCK, Preservative Free, Antibiotic Free, Intramuscular 10/04/2021 Influenza, Quadrivalent, Spl it, Preservative Free, Intramuscular 07/10/2020,07/24/2018 Tdap 06/24/2020,06/11/2018 Surgical History Surgery Date Site/Laterality Comments LAPAROSCOPIC CHOLECYSTECTOMY 10/23/2015 - 10/22/2016 [facility] Medical History Medical History Date Comments Depression Family History Medical History Relation Name Comments , infection Daughter Esophageal cancer Father nonsmoker Heart attack Maternal Grandfather Skin cancer Maternal Grandmother Hypertension Mother Psoriasis Mother Emphysema Paternal Grandfather history of smoking No Known Problems Paternal Grandmother Uterine cancer Paternal cousin No Known Problems Son 1 Margarito No Known Problems Son 2 [place] Relation Name Status Comments Daughter Father (Age 60) Maternal Grandfather (Age 53) Maternal Grandmother Alive Mother Alive Paternal Grandfather Paternal Grandmother (Age 94) Paternal cousin (Age 50) Son 1 Margarito Alive Son 2 [place] Alive Social History Tobacco Use Types Packs/Day [...] staff should administer the PHQ-9) 0 12/26/2022 [place] Depression Scale Answer Date Recorded [place] Depression Scale Total 7 10/28/2020 The thought of harming myself has occurred to me . Never 10/28/2020 Personal Safety Answer Date Recorded Getting School Help Needed Not on file 10/14 Comments No Sex and Gender Information Value Date Recorded Sex Assigned at Not on file Legal Sex Female 1:35 AM MANAGER DELI Gender Identity Female 03/29/2020 6:46 PM CDT [...] ATHLE EN Chinmay Hicks MD Complications:None Delivery Location:[facility] Main C amp[facility] ([facility]LD) Comments Twin , preE, daught er 3d later of E. Coli sepsis Last Filed Vital Signs Vital Sign Reading Time Taken Comments Blood Pressure 131/82 12/26/2022 1:30 PM MANAGER DELI Pulse 90 12/26/2022 1:30 PM MANAGER DELI Temperature 36.6 C (97.8 F) 12/26/2022 1:30 PM MANAGER DELI Respiratory Rate 16 03/03/2022 9:17 AM CDT Oxygen Saturation 98% 03/03/2022 9:17 AM CDT Inhaled Oxygen Concentration - - Weight 91.8 kg (202 lb 6.4 oz) 03/03/2022 9:17 A M CDT Height 162.6 cm (5' 4) 12/21/2021 2:13 PM MANAGER DELI Body Mass Index 34.74 12/21/2021 2:13 PM MANAGER DELI Plan of Treatment Health Maintenance Due Date Last Done Comments Cervical Cancer Screening 1987 Hepatitis B Screening 2005 HPV Vaccines (1 - 3-dose SCDM series) 2014 Depression Screening 12/27/2023 12/26/2022, 12/21/2021, 10/28/2020, Additional history exists Regular Well Visit/Exam 18-64 12/27/2023 12/26/2022, 12/21/2021, 12/03/2021 Covid-19 Vaccine ( season) 2025 10/04/2021, 01/16/2021, 12/24/2020 Influenza Vaccine (#1) 2025 , 07/10/2020, 07/24/2018 DTaP/Tdap/Td Vaccine (3 - Td or Tdap) 06/24/2030 06/24/2020, 06/11/2018 Hepatitis C Screening Completed 12/21/2021 Pneumococcal vaccine <65 Aged Out No longer eligible based on patient's age to complete this topic Varicella Vaccines Discontinued Procedures Procedure Name Priority Date/Time Associated Diagnosis Comments HEPATITIS C ANTIBODY Routine 12/21/2021 3:02 PM MANAGER DELI Preventative health care Arthralgia, unspecified joint from Last 3 Months or Most Recently Relevant to Health Maintenance Results * Hepatitis C antibody (12/21/2021 3:02 PM MANAGER DELI) Hep C Ab Nonreactive Nonreactive [facility]ANUS Comment:Antibodies to HCV no t detected. Does NOT exclude the possibility of recent exposure to HCV. Blood 12/21/2021 3:02 PM MANAGER DELI 12/21/2021 5:07 PM MANAGER DELI Emma Raines MD LAB MICROBIOLOGY - GENERA L ORDERABLES Edited Result - Final [facility] Department [place] [address] from Last 3 Months or Most Recently Relevant to Health Maintenance Insurance [employer] ACCESS CHOICE [employer] Advance Directives For more information, please contact: [phone] * Full Code (Latest Code Status on File) Date Activated Date Inactivated Comments 09/16/2020 3:01 PM 09/17/2020 9:04 PM * Full Code Date Activated Date Inactivated Comments 09/15/2020 10:17 PM 09/16/2020 3:01 PM Full CPR in case of cardiopulmonary arrest Care Teams Laundry Operator Relationship Specialty Start Date End Date Bri Reyez MD PhD Consulting Physician Medical Oncology 01/07/22
--- OUTSIDE RECORDS SUMMARY | 2025-09-13 13:08 | XMS_ITS | Clinical Summary ---
Author Organization [facility] Address [address] [place] [address] Phone Care Team Providers Care Tobacco Packer Name Role Phone Unavailable Primary Care Provider [...] Comments Blood Pressure 122/81 09/25/2018 11:47 AM COUNTER DISH CARRIER Pulse 90 08/21/2018 7:00 AM CDT Temperature 36.9 C (98.5 F) 08/21/2018 7:00 AM CDT Respiratory Rate 18 08/21/2018 7:00 AM CDT Oxygen Saturation 100% 08/17/2018 6:58 AM CDT Inhaled Oxygen Concentration - - Weight 85.7 kg (189 lb) 09/25/2018 11:47 AM COUNTER DISH CARRIER Height 162.6 cm (5' 4) 09/25/2018 11:47 AM COUNTER DISH CARRIER Body Mass Index 32.44 09/25/2018 11:47 AM COUNTER DISH CARRIER Plan of Treatment Health Maintenance Due Date Last Done Comments HEPATITIS B VACCINES (1 of 3 - 19+ 3-dose series) 08/24 HPV VACCINES (1 - 3-dose SCDM series) 2014 PAP SMEAR 09/25/2021 09/25/2018 CERVICAL CANCER SCREENING 09/25/2023 HPV/Cotest (21-29) 09/25/2023 09/25/2018 HPV/Cotest (30-65) 09/25/2023 09/25/2018 INFLUENZA VACCINE (#1) 2025 07/24/2018 DTAP/TDAP/TD VACCINES (2 - Td or Tdap) 06/11/2028 Procedures Procedure Name Priority Date/Time Associated Diagnosis Comments CERV/VAG CYTO AGE BASED SCREEN PAP Routine 09/25/2018 12:32 PM COUNTER DISH CARRIER Cervical smear, as part of routine gynecological examination from Last 3 Months or Most Recently Relevant to Health Maintenance Results * CERV/VAG CYTO AGE BASED SCREEN PAP (09/25/2018 12:32 PM COUNTER DISH CARRIER) COMMENT (PAP): SEE COMMENT 8 8:23 AM COUNTER DISH CARRIER [facility] Comment: This order for age-based cervical cancer and STI screening follows ACOG guidelines(PB 168, 140, SFN024). See individual assays for performing site location. CLINICAL INFORMATION 10/01/2018 8:23 AM COUNTER DISH CARRIER [facility] LAST MENSTRUAL PERIOD Information not provided 10/01/2018 8:23 AM COUNTER DISH CARRIER [facility] PREV PAP: Information not provided 10/01/2018 8:23 AM COUNTER DISH CARRIER [facility] PREV BX: Information not provided 10/01/2018 8:23 AM COUNTER DISH CARRIER [facility] SOURCE Endocervix 10/01/2018 8:23 AM COUNTER DISH CARRIER [facility] ADEQUACY: SEE COMMENT 10/01/2018 8:23 AM COUNTER DISH CARRIER [facility] Comment: Satisfactory for evaluation. Endocervical/transformation zone component present. PAP INTERP Negative for intraepithelial lesion or malignancy. 10/01/2018 8:23 AM COUNTER DISH CARRIER [facility] COMMENT This Pap test has been evaluated with computer assisted technology. 10/01/2018 8:23 AM COUNTER DISH CARRIER [facility] GLASS BEAD MAKER: SEE COMMENT 2017 8:23 AM COUNTER DISH CARRIER [facility] Comment: AMW, CT(ASCP) CT screening location: [place] [address] [place] [address] EXPLANATORY NOTE SEE COMMENT 018 8:23 AM COUNTER DISH CARRIER [facility] Comment: EXPLANATORY NOTE: The [...] Not Detected Not Detected 10/01/2018 8:23 AM COUNTER DISH CARRIER [facility] Comment: This test was performed using the APTIMA HPV Assay ([employer] This assay detects E6/E7 viral messenger RNA (mRNA) from 14 high-risk HPV types (16,18,31,33,35,39,45,51,52,56,58,59,66,68). The analytical performance characteristics of this assay have been determined by [employer]. The modifications have not been cleared or approved by the FDA. This assay has been validated pursuant to the CLIA regulations and is used for clinical purposes. Genital SWAB OF ENDOCERVIX / Unknown Collection / Unknown 09/25/2018 12:32 PM COUNTER DISH CARRIER 09/25/2018 2:51 PM COUNTER DISH CARRIER Narrative [facility] - 10/01/2018 8:23 AM COUNTER DISH CARRIER Performing Organization Information: Site ID: [id number] Name: [facility] Address: [address] [address] Director: Oscar Still D.O., MPH Site ID: [id number] [facility] Address: [address] [address] Director: Shaan Samuels january Wilfrido [facility] Final Result Performing Organization Address City/State/[facility] Co de Phone Number [facility] from Last 3 Months or Most Recently Relevant to Health Maintenance Insurance OPTIONS PPO [id number] Member Subscriber Plan / Payer (Ef fective 2021-Present) Name:Elvia Bolden Relation to Subscriber:Self Name:Elvia Bolden Payer ID:[id number] (NAIC) Type:PPO Address: [place] [id number] [place] [id number] Advance Directives For more information, please contact: [phone] * Full Code (Latest Code Status on File) Date Activated Date Inactivated Comments 08/17/2018 4:40 AM 08/21/2018 2:16 PM * Full Code Date Activated Date Inactivated Comments 08/14/2018 7:42 PM 08/17/2018 4:40 AM * Full Code Date Activated Date Inactivated Comments 08/14/2018 2:48 PM 08/14/2018 7:42 PM
--- OUTSIDE RECORDS SUMMARY | 2025-09-13 13:08 | XMS_ITS | Clinical Summary ---
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 [employer] Gender Identity Not on file Sexual Orientation Not on file Plan of Treatment Health Maintenance Due Date Last Done Comments Cervical Cancer Screening Pa p Smear (Age 30 to 64) Every 3 Years 1987 Annual Physical 1990 Hepatitis C 2005 DTaP, Tdap and Td Vaccines ( 1 - Tdap) 2006 Hepatitis B Vaccines (1 of 3 - 19+ 3-dose series) 2006 HPV Vaccines (1 - 3-dose SCD M series) 2014 Cervical Cancer Screening Pa p with HPV Testing (Age 30 to 64) Every 5 Years 2017 Cervical Cancer Screening with HPV 2017 COVID-19 Vaccine (2024-2 6 season) 2025 Influenza Adult (#1) 2025 Hepatitis A Vaccines Aged Out No long er eligible based on patient's age to complete this topic Meningococcal B Vaccine Aged Out No l onger eligible based on patient's age to complete this topic Meningococcal Vaccine Aged Out No nadeem asaf eligible based on patient's age to complete this topic Pneumococcal Vaccine: Pediat rics (0 to 5 Years) and At-Risk Patients (6 to 49 Years) Aged Out No longer eligible b ased on patient's age to complete this topic RSV Immunizations Under 20 Months Aged Out No longer eligible based on patient's age to complete this topic
--- OUTSIDE RECORDS SUMMARY | 2025-09-13 13:08 | XMS_ITS | Clinical Summary ---
Author Organization [facility] Care Team Providers Care Truck Shop Supervisor Name Role Phone Unavailable Primary Care Provider [...] 19+ 3-dose series) 2006 Pap Smear 2008 Human Papillomavirus (HPV) Immunization (1 - 3-dose SCDM series) 2014 Cervical Cancer Screening ([facility]) 2017 HPV/Cotest 2017 Influenza Immunization (#1) 2025 SARS-COV-2 Immunization (2024- season) 2025 01/16/2021, 12/24/2020 Respiratory Syncytial Virus (RSV) Immunization [...]
[2025-09-13 13:27] VITALS: BP 132/77; PULSE 99; RESP 18; TEMP 37; O2SAT 100
--- NOTE | 2025-09-13 13:29 | ED.URI ---
HPI - URI/Sore Throat General Chief Complaint: Upper Respiratory Infection Stated Complaint: strep patient presents to the [facility] with complaints of worsening sore throat that began about 1 week ago. Patient does also note sinus pain, nasal congestion, nasal drainage, headaches, pressure in ears did have swollen lymph nodes earlier in the week. patient does report 2 children in her home or on antibiotics for strep this past week. Patient has been using [id number] cough cold medication Tylenol, and ibuprofen. Denies fever, chills, body aches, shortness of breath, nausea, vomiting, diarrhea, or dizziness. Related Data Home Medications ?Medication ?Instructions ?Recorded ?Confirmed ?Last Taken ?Type levonorgestrel 17.5 mcg/24 hr (up See Rx Instructions .Route .COMPLEX 12/20/23 12/20/23 Unknown History to 5 yrs) 19.5mg intrauterine device (Kyleena) Allergies Allergy/AdvReac Type Severity Reaction Status Date / Time lactase Allergy Severe Anaphylaxis Verified 09/13/25 13:27 milk Allergy Severe Anaphylaxis Verified 09/13/25 13:27 Review of Systems Constitutional: Constitutional: Reports as per HPI, Denies chills, Denies fatigue, Denies fever(s) and Denies weakness Eyes: Eyes: Reports no additional eye complaints ENT: Reports as per HPI, Denies vertigo, Denies dizziness, Reports nasal congestion and Reports sore throat Comments: sinus pain Cardiovascular: Cardiovascular: Reports no additional cardiovascular complaints Respiratory: Respiratory: Reports as per HPI, Reports chest congestion, Reports cough, Denies dyspnea and Denies wheezing Gastrointestinal: Gastrointestinal: Reports as per HPI, Denies abdominal pain, Denies diarrhea, Denies nausea and Denies vomiting Genitourinary: Genitourinary: Reports no additional female genitourinary complaints Musculoskeletal: Musculoskeletal: Reports as per HPI, Denies back pain and Denies myalgias Integumentary/Breasts: Skin/Breast: Reports as per HPI, Denies erythema and Denies rash Neurologic: Reports as per HPI, Denies vertigo, Denies dizziness, Reports headache(s), Denies numbness and Denies weakness Psychiatric: Psychiatric: Reports no additional psychiatric complaints Endocrine: Endocrine: Reports no additional endocrine complaints Hematologic/Lymphatic: Hematologic/Lymphatic: Reports no additional hematologic/lymphatic complaints Allergic/Immunologic: Allergic/Immunologic: Reports no additional allergic/immunologic complaints [facility] Family History Family History Father Family history of thyroid disease Family history of kidney stones Colon polyp Family history of sleep apnea Mother Hypertension Family history of allergic disorder Family history of psoriasis Family history of diabetes mellitus in first degree relative Grandparent Family history of glaucoma Hypertension Carcinoma of colon Family history of emphysema Family history of heart disease in male family member before age 55 Diabetes mellitus Other Family history of Alzheimer's disease Family history of cardiovascular disease Family history of lymphoma Family history of malignant neoplasm Social History Social History Smoking status: Never smoker Alcohol intake: current Exam Const: General: healthy appearing and no acute distress Nutritional Appearance: well nourished Orientation/consciousness: patient oriented x3 Limitations: no limitations HENMT: Head: normal to inspection Ears: external ears normal and TM's normal bilaterally Face/Nose/Sinus: Normal external nose present, Normal nares present and no nasal discharge noted Face and sinus: normal facial exam and sinus tenderness maxillary Mouth: Yes Normal oral and palatal mucosa present, Yes lip normal and Yes moist mucous membranes Throat: posterior oropharynx abnormal ( Moderate erythema and edema no exudate) Neck: Neck: normal visual inspection and lymphadenopathy ( minimal submandibular bilateral) Resp: Effort & Inspection: normal respiratory effort Auscultation: clear to auscultation bilaterally Cardio: Rate: regular rate Rhythm: regular rhythm Skin: General skin exam: normal color Rashes: no rashes Wounds: no wounds Neuro: General: patient oriented x3 Speech: normal speech Gait exam (Neuro): Normal gait present Psych: Mental Status: mental status grossly normal Affect: normal affect Attitude: cooperative Course Course Level of Care: Express Care Visit Vital Signs Vital signs: Vital Signs Temperature 98.6 F 09/13/25 13:27 Pulse Rate 99 09/13/25 13:27 Respiratory Rate 18 09/13/25 13:27 Blood Pressure 132/77 09/13/25 13:27 Pulse Oximetry 100 09/13/25 13:27 Oxygen Delivery Room Air 09/13/25 13:27 Temperature 98.6 F 09/13/25 13:27 Pulse Rate 99 09/13/25 13:27 Respiratory Rate 18 09/13/25 13:27 Blood Pressure 132/77 11/22/25 13:27 Pulse Oximetry 100 09/13/25 13:27 Oxygen Delivery Room Air 09/13/25 13:27 MDM - URI/Sore Throat MDM Narrative Medical decision making narrative: strep negative, will send culture. Close contacts with positive strep and 1 week of worsening symptoms will start antibiotic The patient was evaluated by myself in the express care. History is obtained from patient who is an independent historian and physical exam was performed. Available medical records were reviewed at this time. Exam findings show no acute concerns or changes; patient is non-toxic appearing and is in no distress. Patient is appropriate for outpatient treatment and follow-up. I have evaluated and discussed social determinants of health with the patient that could potentially impact subsequent diagnosis and treatment plans. Differential diagnosis and treatment plan were discussed with the patient. Patient agrees with discussion and after shared medical decision making agrees with plan of care. All questions were answered to the patient's satisfaction. Differential Diagnosis Differential diagnosis: Likely upper respiratory infection, croup, otitis media, sinusitis, viral infection, bronchitis, influenza and pharyngitis Medical Records Attestation: I reviewed the patient's medical records. Lab Data Attestation: I reviewed the patient's lab results. Discharge Plan Discharge Clinical Impression: Sinusitis Patient Disposition: Home Condition: Stable Instructions: Antibiotic Form, Sinusitis (ED) Additional Instructions: Take the antibiotics as directed for the entire course. Do not miss any doses. What you are taking antibiotics and is recommended to take a probiotic or have yogurt daily to return the good gut bacteria to your system. This can also help with acute diarrhea while taking antibiotics. It can take 24-48 hours for the antibiotics to start to relieve your symptoms continue to take these medications to help with various symptoms: Tylenol or Motrin for pain, headache, or fever Flonase/fluticasone or Nasacort/triamcinolone nasal spray- helps with congestion and nasal drainage. Sudafed/pseudoephedrine helps with sinus pain and congestion. Caution with high blood pressure. Use a humidifier or vaporizer at night. Drink plenty of water. 8-10 glasses per day. Mucinex/guaifenesinas directed and be sure to take with 8oz of water. Warm compresses over the forehead and cheeks to promote sinus drainage. Return to urgent care or go to the ER for new or worsening symptoms. Follow up with Primary provider if not improved after 1 week. Patient Language: Tamazight Prescriptions: New cefdinir 300 mg capsule 300 mg PO Q12H Qty: 20 0RF No Action Kyleena 17.5 mcg/24 hrs (5 yrs) 19.5 mg Intrauterine Device See Rx Instructions .ROUTE .COMPLEX Rx Instructions: 17.5 mcg intrauterinely Follow-up/Referrals: UNKNOWN,DOCTOR [Primary Care Provider] Time of Disposition: 13:51
[2025-09-15 11:50] LABS: EDSTREPNEGPOS1 Negative (Negative)
== END 2025-09-13 14:16 | disposition home or self-care (01) ==
PROVIDERS: Emergency Provider Nurse Practitioner Family
DX: J32.9 Chronic sinusitis, unspecified (principal)
CPT/HCPCS: 87081; 87880; 99213; G0463